=== PATIENT | female | born 1995 | race Caucasian/White ===

== ENCOUNTER 2017-08-29 18:27 | Emergency (ER) | payer OTHER ==
[2017-08-29] MEDS ORDERED: Ondansetron ODT TAB* 4 MG PO ONE ×2 (20:28→21:06)
--- NOTE | 2017-08-29 20:38 | UC ---
FLU HPI - HPI Summary HPI Summary: ONSET OF NAUSEA, VOMITING AND WATERY STOOLS LAST NIGHT. TODAY HAD SUBJECTIVE FEVERS, CHILLS AND BODY ACHES. DENIES COUGH OR CONGESTION. - History of Current Complaint Chief Complaint: UCGI Stated Complaint: VOMITING Time Seen by Provider: 08/29/17 20:22 Hx Obtained From: Patient Hx Last Menstrual Period: 08/15/17 Onset/Duration: Gradual Onset, Lasting Days - 1 DAY, Still Present Severity Currently: Moderate Severity Initially: Moderate Pain Intensity: 6 Pain Scale Used: 0-10 Numeric Associated Signs & Symptoms: Positive: Myalgia, Headache, Vomiting, Diarrhea - Allergy/Home Medications Allergies/Adverse Reactions: Allergies Allergy/AdvReac Type Severity Reaction Status Date / Time No Known Allergies Allergy Verified 08/29/17 19:13 Home Medications: Home Medications Bismuth Subsalicylate [Pepto Bismol] 262 mg PO ONCE 08/29/17 [History Confirmed 08/29/17] PMH/Surg Hx/FS Hx/Imm Hx Previously Healthy: Yes - Surgical History Surgical History: Yes Surgery Procedure, Year, and Place: appy. cyst removal. tonsillectomy. wisdom teeth - Family History Known Family History: Negative: Hypertension - Social History Alcohol Use: Occasionally Substance Use Type: None Smoking Status (MU): Never Smoked Tobacco Review of Systems Constitutional: Negative, Chills, Fatigue ENT: Sore Throat Respiratory: Negative Cardiovascular: Negative Gastrointestinal: Abdominal Pain, Vomiting, Diarrhea, Nausea Musculoskeletal: Myalgia Neurological: Headache All Other Systems Reviewed And Are Negative: Yes Physical Exam Triage Information Reviewed: Yes Appearance: No Pain Distress, Well-Nourished, Ill-Appearing - MILD Vital Signs: Initial Vital Signs Temp 98 F 08/29/17 19:09 Pulse 91 08/29/17 19:09 Resp 18 08/29/17 19:09 BP 114/69 08/29/17 19:09 Pulse Ox 99 08/29/17 19:09 Vital Signs Reviewed: Yes Eyes: Positive: Conjunctiva Clear ENT: Positive: Hearing grossly normal, Pharynx normal, TMs normal Neck: Positive: Supple, Nontender, No Lymphadenopathy Respiratory Exam: Normal Cardiovascular Exam: Normal Abdomen Description: Positive: Soft Musculoskeletal: Positive: No Edema Neurological: Positive: Alert Psychological: Positive: Age Appropriate Behavior Skin: Negative: rashes Diagnostics - Laboratory Diagnostic Studies Completed/Ordered: RAPID FLU NEGATIVE Flu Course/Dx - Differential Dx/Diagnosis Provider Diagnoses: GASTROENTERITIS Discharge - Discharge Plan Condition: Stable Disposition: HOME Prescriptions: Ondansetron ODT TAB* [Zofran Odt TAB*] 4 mg PO Q6H PRN #20 tab.odt PRN Reason: Nausea/Vomiting Patient Education Materials: Gastroenteritis (ED), Viral Syndrome (ED) Forms: *School Release [facility]errals: [facility] [Outside] - If Needed Additional Instructions: FLU SWAB NEGATIVE YOUR SYMPTOMS ARE LIKELY VIRALLY MEDIATED AND SHOULD RESOLVE ON THEIR OWN WITH TIME. REST, HYDRATE, OTC MEDS NEEDED. SEEK FOLLOW-UP IF YOU ARE NOT IMPROVING OVER THE NEXT SEVERAL DAYS. GASTROENTERITIS: You have gastroenteritis ("intestinal flu"). This disease is usually caused by a virus. There is no specific treatment. The disease will end by itself. For now, the main danger is dehydration. Give clear liquids. Examples include Pedialyte, Gatorade, clear broth, juices, flat sodas, and jello water. Medications may be prescribed by the physician for special cases. Once tolerated, the clear liquid diet may be supplemented with rice, cereal, toast, applesauce, or bananas. Call the physician or go to the hospital if vomiting increases or blood appears in the bowel movement or vomitus; if you fail to improve, or if signs of dehydration occur (tongue and mouth become dry, lethargy). ENSURE ADEQUATE HYDRATION. CLEAR LIQUIDS, BLAND DIET. AVOID CAFFEINE, DAIRY, GREASY, SPICY FOODS. ONCE YOU ARE TOLERATING CLEAR LIQUIDS YOU CAN ADVANCE TO SIMPLE, BLAND FOODS.
== END 2017-08-29 21:16 | disposition home or self-care (01) ==
LOC: UCCORT 18:27
DX: K52.9 Noninfective gastroenteritis and colitis, unspecified (principal)
CPT/HCPCS: 87502; 99202; A9270-GY; G0463